=== PATIENT | male | born 1990 | race Caucasian/White ===

== ENCOUNTER 2023-07-04 19:17 | Inpatient (IN) ==
[2023-07-04 20:52] LABS: Adenovirus PCR Not Detected (NotDetected); Bordetella parapertussis PCR Not Detected (NotDetected); Bordetella pertussis PCR Not Detected (NotDetected); Chlamydia pneumoniae PCR Not Detected (NotDetected); Coronavirus 229E PCR Not Detected (NotDetected); Coronavirus CoV-2 (COVID19)PCR Not Detected (NotDetected); Coronavirus HKU1 PCR Not Detected (NotDetected); Coronavirus NL63 PCR Not Detected (NotDetected); Coronavirus OC43PCR Not Detected (NotDetected); Human Metapneumovirus PCR Not Detected (NotDetected); Influenza A PCR Not Detected (NotDetected); Influenza B PCR Not Detected (NotDetected); Mycoplasma pneumoniae PCR Not Detected (NotDetected); Parainfluenza Virus 1 PCR Not Detected (NotDetected); Parainfluenza Virus 2 PCR Not Detected (NotDetected); Parainfluenza Virus 3 PCR Not Detected (NotDetected); Parainfluenza Virus 4 PCR Not Detected (NotDetected); Respiratory Syncytial VirusPCR Not Detected (NotDetected); Rhinovirus/Enterovirus PCR Not Detected (NotDetected)
[2023-07-04 20:55] LABS: Basophils # (auto) 0.09 K/uL (0.00-0.20); Basophils % (auto) 0.5 %; Eosinophils # (auto) 0.39 K/uL (0.00-0.50); Eosinophils % (auto) 2.4 %; Hematocrit (blood only) 42.3 % (42.0-52.0); Hemoglobin 15.1 g/dl (14.0-18.0); Immature Granulocytes % (auto) 0.6 %; Lymphocytes # (auto) 2.21 K/uL (1.20-3.40); Lymphocytes % (auto) 13.4 %; Mean Corpuscular Hemoglobin 29.9 pg (25.0-34.0); Mean Corpuscular Hgb Conc 35.7 g/dL (32.0-36.0); Mean Corpuscular Volume 83.8 fL (80.0-100.0); Mean Platelet Volume 10.9 fL (9.4-12.4); Monocytes % (auto) 7.9 %; Neutrophils % (auto) 75.2 %; Platelet Count 356 K/uL (130-400); RDW Coefficient of Variation 11.9 % (11.5-14.5); RDW Standard Deviation 35.1 fL (36.4-46.3); Red Blood Count 5.05 M/uL (4.70-6.10); White Blood Count 16.49 K/ul (4.8-10.8)
[2023-07-04 21:05] LABS: INR 1.1 (0.9-1.1); Partial Thromboplastin Time 28 Seconds (21-31); Prothrombin Time 11.9 Seconds (9.0-12.0)
[2023-07-04 21:11] LABS: Albumin Globulin Ratio 1.1 (0.9-2); Albumin Level 4.2 gm/dl (3.4-5.0); BUN Creatinine Ratio 8.2 (10-20); Bilirubin,Total 1.7 mg/dl (0.2-1.0); Calcium 9.4 mg/dl (8.6-10.3); Creatinine Clr Calc Pharmacy 151.3 ml/min; Est GFR (African American) 135.5 ml/min; Est GFR (Non-African American) 116.9 ml/min; Globulin 3.7 gm/dl (2.5-4.0); Potassium 3.9 mmol/L (3.5-5.1); Total Protein 7.9 gm/dl (6.0-8.3)
--- NOTE | 2023-07-04 22:19 | Emergency Department Note ---
History of Present Illness General Chief complaint: Shortness of Breath/Dyspnea Stated complaint: SOB, RIBS HURT, COUGHING UP, PULSE OX DOWN Time Seen by Provider: 07/04/23 22:03 History of Present Illness Maximum Pain Intensity: 6 This is a 32-year-old male presents to the emergency department for evaluation of difficulty breathing. Patient has had symptoms for about a month and has been using home nebulizers without relief of symptoms. He states that he has a childhood history of asthma, but nothing as an adult. He did travel to and from [place] by car about 6 weeks ago. He does not have any chest pain or chest tightness, but feels very short of breath with activity. No pain in his arms or legs. No fevers. Patient does vape. Home Medications Medication Instructions Recorded Confirmed Type albuterol sulfate 90 mcg/actuation 2 puff inhalation .Q4-6H PRN 07/04/23 07/04/23 History aerosol inhaler Shortness Of Breath Or Wheezing benztropine 1 mg tablet 1 mg PO DAILY 07/04/23 07/04/23 History buprenorphine 8 mg-naloxone 2 mg 1 tab sublingual BID 07/04/23 07/04/23 History sublingual tablet diphenhydramine HCl 25 mg tablet 50 mg PO HS 07/04/23 07/04/23 History (Banophen) haloperidol 5 mg tablet 5 mg PO HS 07/04/23 07/04/23 History mirtazapine 15 mg tablet 15 mg PO HS 07/04/23 07/04/23 History propranolol 20 mg tablet 20 mg PO BID 07/04/23 07/04/23 History Allergies Allergy/AdvReac Type Severity Reaction Status Date / Time Penicillins Allergy Severe throat Verified 07/04/23 22:55 swells Past Med/Surg History Medical History No chronic diseases present Surgical History No significant past surgical history Social History Smoking Status: Current every day smoker Tobacco Type: E-cigarettes / Vaping and Smokeless Tobacco (Dip or Chew) Second Hand Exposure: No; Do You Dip or Chew Tobacco: Yes; Tobacco Cessation Education Requested by Patient: No Hx Alcohol Use: No Hx Substance Use: Yes (suboxone) Last Used Substance: Unknown Preferred Language: [place]an Credit Authorizer Required: No Beliefs That Will Affect Care: None Current Living Situation: Significant Other Other Information That Helps Us Care for You: No Feels Safe at Home: Yes Safety Concerns: Feels Safe At This Time Assistive Devices: None Review of Systems A total of 10 systems reviewed and were otherwise negative Physical Exam Vital Signs Vital Signs - 24 hr 07/04/23 19:20 07/04/23 19:24 07/04/23 21:50 Temperature 36.6 C Temperature Source Temporal Artery Scan Pulse Rate 97 H Pulse Rate [Apical] 96 H Pulse Rate from SpO2 Sensor Pulse Rhythm Regular Pulse Rhythm [Apical] Regular Pulse Strength Normal Respiratory Rate 18 24 Respiratory Effort / Characteristics Non-Labored Spontaneous Non-Labored Spontaneous Respiratory Depth Normal Normal Respiratory Pattern Regular Regular Blood Pressure 142/88 H Blood Pressure [Right Arm] 161/127 H Blood Pressure Mean 106 Blood Pressure Mean [Right Arm] 138 Blood Pressure Position Sitting Blood Pressure Position [Right Arm] Lying Pulse Oximetry 90 91 Oxygen Delivery Method Room Air Room Air Nasal Cannula Oxygen Flow Rate 2 Sepsis Recent Fever Within 48 Hours No Sepsis New/Unexplained Change in Mental Status N/A Sepsis Action Taken by Nursing No Action Required Oxygen Flow Rate - Titration Pulse Oximetry Post Tiitration 07/04/23 21:51 07/04/23 22:27 07/04/23 22:30 Temperature Temperature Source Pulse Rate 99 H 94 H Pulse Rate [Apical] Pulse Rate from SpO2 Sensor 97 H Pulse Rhythm Pulse Rhythm [Apical] Pulse Strength Respiratory Rate 21 Respiratory Effort / Characteristics Respiratory Depth Respiratory Pattern Blood Pressure Blood Pressure [Right Arm] Blood Pressure Mean Blood Pressure Mean [Right Arm] Blood Pressure Position Blood Pressure Position [Right Arm] Pulse Oximetry 88 L 90 Oxygen Delivery Method Nasal Cannula Nasal Cannula Oxygen Flow Rate 0 2 Sepsis Recent Fever Within 48 Hours Sepsis New/Unexplained Change in Mental Status Sepsis Action Taken by Nursing Oxygen Flow Rate - Titration 2 Pulse Oximetry Post Tiitration 91 07/04/23 23:00 07/04/23 23:35 07/05/23 00:31 Temperature Temperature Source Pulse Rate 96 H 94 H 90 Pulse Rate [Apical] Pulse Rate from SpO2 Sensor 97 H 94 H 92 H Pulse Rhythm Pulse Rhythm [Apical] Pulse Strength Respiratory Rate 22 19 15 Respiratory Effort / Characteristics Respiratory Depth Respiratory Pattern Blood Pressure 139/88 130/100 Blood Pressure [Right Arm] Blood Pressure Mean 105 110 Blood Pressure Mean [Right Arm] Blood Pressure Position Blood Pressure Position [Right Arm] Pulse Oximetry 92 92 91 Oxygen Delivery Method Nasal Cannula Nasal Cannula Nasal Cannula Oxygen Flow Rate 2 2 2 Sepsis Recent Fever Within 48 Hours Sepsis New/Unexplained Change in Mental Status Sepsis Action Taken by Nursing Oxygen Flow Rate - Titration Pulse Oximetry Post Tiitration VITALS: Vitals are noted on the nurse's note and reviewed by myself. Vital signs with tachycardia and hypoxia. GENERAL: Well-developed, well-nourished, white male, who is in no acute distress and resting comfortably. Patient is cooperative with the examination. HEAD: Normocephalic atraumatic. EARS: External ear normal. External auditory canals clear, tympanic membranes pearly trujillo without erythema or effusion bilaterally. EYES: Pupils equal round and reactive to light and accommodation. Conjunctivae without injection, sclerae without icterus. Extraocular movements intact. NOSE: Patent, turbinates without inflammation or discharge. MOUTH: Mucous membranes moist. Tonsils are not enlarged. Pharynx without erythema, blood, or exudate. Uvula midline. Airway patent. NECK: Supple without nuchal rigidity. No lymphadenopathy. No thyromegaly. Cervical spine is nontender. HEART: Regular rate and rhythm without murmurs gallops or rubs. LUNGS: Clear to auscultation bilaterally without wheezes, rales or rhonchi. No retractions or accessory muscle use. ABDOMEN: Positive normal bowel sounds x 4. Soft, nontender, without masses or organomegaly. No guarding or rebound tenderness. MUSCULOSKELETAL: No muscle atrophy, erythema, or edema noted. Full range of motion in all extremities. Course Administered Medications Discontinued Medications Benztropine Mesylate (Benztropine Mesylate 1 Mg Tab) 1 mg PO NOW STA Stop: 07/05/23 01:04 Last Admin: 07/05/23 01:33 Dose: 1 mg Documented By: SHREE Buprenorphine/Naloxone (Buprenorphine/Naloxone 8/2 Mg Tab) 1 tab SL NOW STA Stop: 07/05/23 01:04 Last Admin: 07/05/23 01:34 Dose: 1 tab Documented By: SHREE Diphenhydramine HCl (Diphenhydramine Capsule 25 Mg Cap) 50 mg PO NOW ONE Stop: 07/05/23 01:04 Last Admin: 07/05/23 01:34 Dose: 50 mg Documented By: SHREE Haloperidol (Haloperidol 5 Mg Tab) 5 mg PO NOW STA Stop: 07/05/23 01:04 Last Admin: 07/05/23 01:33 Dose: 5 mg Documented By: SHREE Tuberculin PPD 5 tu/ Syringe 0.1 mls @ 0.033 mls/min ID ONE ONE Stop: 07/05/23 03:03 Last Admin: 07/05/23 03:22 Dose: 0.033 mls/min Documented By: LIZET Ioversol (Optiray 320 125ml) 120 ml IV ONCE ONE Stop: 07/04/23 23:14 Last Admin: 07/04/23 23:13 Dose: 120 ml Documented By: ALBIN Mirtazapine (Mirtazapine Tab 15 Mg Tab) 15 mg PO NOW ONE Stop: 07/05/23 01:04 Last Admin: 07/05/23 01:33 Dose: 15 mg Documented By: SHREE Miscellaneous (Ppd Check) 1 each N/A Q48H ONE Stop: 07/05/23 03:01 Last Admin: 07/05/23 03:27 Dose: Not Given Documented By: LIZET Propranolol HCl (Propranolol Hcl 20 Mg Tab) 20 mg PO NOW STA Stop: 07/05/23 01:04 Last Admin: 07/05/23 01:33 Dose: 20 mg Documented By: SHREE Medical Decision Making Differential Diagnosis Differential diagnosis includes, but is not limited to: Myocardial infarction, dysrhythmia, pericarditis, pneumothorax, aortic aneurysm/dissection, DVT/PE, anxiety, GERD, PUD, electrolyte imbalance, thyroid disorder, pneumonia, bronchitis, pancreatitis, and others Laboratory Data 07/04/23 20:29 07/04/23 20:29 Lab Results 07/04/23 07/04/23 07/04/23 Range/Units 19:32 20:29 Unknown WBC 16.49 H (4.8-10.8) K/ul RBC 5.05 (4.70-6.10) M/uL Hgb 15.1 (14.0-18.0) g/dl Hct 42.3 (42.0-52.0) % MCV 83.8 (80.0-100.0) fL MCH 29.9 (25.0-34.0) pg MCHC 35.7 (32.0-36.0) g/dL RDW Std Deviation 35.1 L (36.4-46.3) fL RDW Coeff of Shaquille 11.9 (11.5-14.5) % Plt Count 356 (130-400) K/uL MPV 10.9 (9.4-12.4) fL Immature Gran % (Auto) 0.6 % Neut % (Auto) 75.2 % Lymph % (Auto) 13.4 % Schleicher % (Auto) 7.9 % Eos % (Auto) 2.4 % Baso % (Auto) 0.5 % Neut # (Auto) 12.40 H (1.40-6.50) K/uL Lymph # (Auto) 2.21 (1.20-3.40) K/uL Schleicher # (Auto) 1.30 H (0.11-0.59) K/uL Eos # (Auto) 0.39 (0.00-0.50) K/uL Baso # (Auto) 0.09 (0.00-0.20) K/uL Immature Gran # (Auto) 0.10 (0.01-0.20) K/uL PT 11.9 (9.0-12.0) Seconds INR 1.1 (0.9-1.1) APTT 28 (21-31) Seconds PTT Ratio 1.0 VBG pH 7.41 (7.36-7.41) VBG pCO2 26 L (38-50) mmHg VBG pO2 44 mmHg VBG HCO3 17 mmol/L VBG O2 Saturation 75.1 % VBG Base Excess -6.5 mEq/L Sodium 134 L (136-145) mmol/L Potassium 3.9 (3.5-5.1) mmol/L Chloride 98 (98-107) mmol/L Carbon Dioxide 28 (21-32) mmol/L Anion Gap 8 (3-11) BUN 7 (6-23) mg/dl Creatinine 0.85 (0.6-1.4) mg/dl Est Cr Clr Drug Dosing 151.3 ml/min Est GFR ( Amer) 135.5 ml/min Est GFR (Non-Af Amer) 116.9 ml/min BUN/Creatinine Ratio 8.2 L (10-20) Glucose 109 H (70-99(Fasting)) mg/dl Calcium 9.4 (8.6-10.3) mg/dl Phosphorus 2.4 L (2.5-4.9) mg/dl Total Bilirubin 1.7 H (0.2-1.0) mg/dl AST 49 H (13-39) U/L ALT 49 (7-52) U/L Alkaline Phosphatase 141 H (34-104) U/L Lactate Dehydrogenase 244 (86-244) U/L Troponin I High Sens 5.0 (0-20) pg/ml Total Protein 7.9 (6.0-8.3) gm/dl Albumin 4.2 (3.4-5.0) gm/dl Globulin 3.7 (2.5-4.0) gm/dl Albumin/Globulin Ratio 1.1 (0.9-2) Adenovirus (PCR) Not Detected (NotDetected) B. pertussis DNA (PCR) Not Detected (NotDetected) B.parapertussis DNA PCR Not Detected (NotDetected) C. pneumoniae DNA (PCR) Not Detected (NotDetected) Coronavirus OC43 (PCR) Not Detected (NotDetected) Coronavirus HKU1 (PCR) Not Detected (NotDetected) Coronavirus 229E (PCR) Not Detected (NotDetected) SARS-CoV-2 (PCR) Not Detected (NotDetected) Coronavirus NL63 (PCR) Not Detected (NotDetected) Human Metapneumovir PCR Not Detected (NotDetected) Influenza Type A (PCR) Not Detected (NotDetected) Influenza Type B (PCR) Not Detected (NotDetected) M. pneumoniae (PCR) Not Detected (NotDetected) Parainfluenza 1 (PCR) Not Detected (NotDetected) Parainfluenza 2 (PCR) Not Detected (NotDetected) Parainfluenza 3 (PCR) Not Detected (NotDetected) Parainfluenza 4 (PCR) Not Detected (NotDetected) RSV (PCR) Not Detected (NotDetected) Entero/Rhino (PCR) Not Detected (NotDetected) Imaging Data Radiologist's Impression: Chest CTA 07/04/23 22:04 CR Exam(s): CTA CHEST IV Amt: 120 cc otp i320 EXAM: CT Angiography Chest With Intravenous Contrast CLINICAL HISTORY: Reason for exam: SOB. TECHNIQUE: Axial computed tomographic angiography images of the chest with intravenous contrast. CTDI is 26.04 mGy and DLP is 899.64 mGy-cm. Automated exposure control was utilized for the study. A dose lowering technique was utilized adhering to the principles of ALARA. MIP reconstructed images were created and reviewed. COMPARISON: None. FINDINGS: Pulmonary arteries: Unremarkable. No pulmonary embolism. Aorta: No acute findings. No thoracic aortic aneurysm. Lungs: Diffuse asymmetric multilobar infiltrates with tree-in-bud pattern concerning for bronchiolar infectious process including viral etiology, nonspecific bronchiolitis, fungal infection or TB/atypical TB. Minimal bilateral lower lobe bronchiectasis. Pleural space: Unremarkable. No pleural effusion or pneumothorax. Heart: Unremarkable. No cardiomegaly. No significant pericardial effusion. No evidence of RV dysfunction. Bones/joints: No acute fracture. No dislocation. Soft tissues: Unremarkable. Lymph nodes: Unremarkable. No enlarged lymph nodes. Other findings: Visualized upper abdominal structures are unremarkable. IMPRESSION: 1. No pulmonary embolus or aortic dissection. 2. Diffuse micronodular infiltrates as described above with wide differential diagnosis including bronchiolitis of viral etiology, inflammatory, fungal infection or TB/atypical TB. Clinical correlation recommended. 3. No pleural effusion or pneumothorax. Communications: Call Doctor Other Electronically signed by: Angelika Haque MD 07/05/23 00:11 AM MDM Narrative Physical exam and history were performed. Nursing notes, EMR, and Medication List were personally reviewed. No social concerns were identified as barriers to patients care. Patient was seen while I was wearing an N95 mask at all times. Patient appears to have difficulty breathing bringing him to the ER. On arrival the patient is 86% on room air when walking to his room and 88% on room air at rest. Patient was placed on nasal cannula oxygen. He does not appear in significant distress with speaking, and lung sounds seem clear throughout. His vitals are concerning though. IV access was established and labs were obtained. Bio fire performed. Chest x-ray and CT scan performed. Patient's blood work is as above and was reviewed. He does have an elevated white count of 16,000. He does not have significant anemia or gross electrolyte imbalance. Lipase and transaminases are not diagnostic. Troponin is negative. Chest x-ray was reviewed by myself without obvious etiology of his symptoms. Bio fire is negative. CT scan of the chest was performed and reviewed by myself and radiology. This does seem to show diffuse micro infiltrates of unknown etiology. Overall the patient does not appear well for discharge. Escalation of care is necessary for the patient. He has hypoxia that improved with nasal oxygen, and a very concerning CT scan of the chest. There is a very wide differential to his symptoms. The case was discussed with the on-call hospitalist team who agreed to evaluate him here in the ER. Please see their dictation for further patient course, plan, and disposition. The chart was completed utilizing [employer] Voice Recognition Software. Grammatical errors, random word insertions, pronoun errors, and incomplete sentences are an occasional consequence of this system due to software limitations, ambient noise, and hardware issues. Any formal questions or concerns about the content, text, or information contained within the body of this dictation should be directly addressed to the provider for clarification. . Impression & Plan Acute dyspnea, Shortness of breath, Abnormal chest CT Discharge Plan Visit Data Chief Complaint: Shortness of Breath/Dyspnea Stated Complaint: SOB, RIBS HURT, COUGHING UP, PULSE OX DOWN ED Provider: James Rizo ED Midlevel Provider: Girish Fuentes Discharge Problem: Acute dyspnea, Shortness of breath, Abnormal chest CT Patient Disposition: Admitted As Inpatient Discharge Instructions Interventions: ED Discharge Assessment Last Done: 07/05/23 02:04
[2023-07-04] MEDS: OPTIRAY 320 125ml IV ONE (23:13)
--- NOTE | 2023-07-05 00:12 | CT Scan Report ---
Exam(s): CTA CHEST IV Amt: 120 cc otp i320 EXAM: CT Angiography Chest With Intravenous Contrast CLINICAL HISTORY: Reason for exam: SOB. TECHNIQUE: Axial computed tomographic angiography images of the chest with intravenous contrast. CTDI is 26.04 mGy and DLP is 899.64 mGy-cm. Automated exposure control was utilized for the study. A dose lowering technique was utilized adhering to the principles of ALARA. MIP reconstructed images were created and reviewed. COMPARISON: None. FINDINGS: Pulmonary arteries: Unremarkable. No pulmonary embolism. Aorta: No acute findings. No thoracic aortic aneurysm. Lungs: Diffuse asymmetric multilobar infiltrates with tree-in-bud pattern concerning for bronchiolar infectious process including viral etiology, nonspecific bronchiolitis, fungal infection or TB/atypical TB. Minimal bilateral lower lobe bronchiectasis. Pleural space: Unremarkable. No pleural effusion or pneumothorax. Heart: Unremarkable. No cardiomegaly. No significant pericardial effusion. No evidence of RV dysfunction. Bones/joints: No acute fracture. No dislocation. Soft tissues: Unremarkable. Lymph nodes: Unremarkable. No enlarged lymph nodes. Other findings: Visualized upper abdominal structures are unremarkable. IMPRESSION: 1. No pulmonary embolus or aortic dissection. 2. Diffuse micronodular infiltrates as described above with wide differential diagnosis including bronchiolitis of viral etiology, inflammatory, fungal infection or TB/atypical TB. Clinical correlation recommended. 3. No pleural effusion or pneumothorax. Communications: Call Doctor Other Electronically signed by: Angelika Haque MD 07/05/23 00:11 AM
[2023-07-05 00:21] LABS: Base Excess VBG -6.5 mEq/L; HCO3 VBG 17 mmol/L; Oxygen Saturation VBG 75.1 %; PCO2 VBG 26 mmHg (38-50); PO2 VBG 44 mmHg; pH VBG 7.41 (7.36-7.41)
--- NOTE | 2023-07-05 01:23 | History & Physical Report ---
Date of Service July 05, 2023 Assessment & Plan (1) Acute hypoxic respiratory failure: Plan: 32yo male with history of paranoid schizophrenia and Bipolar disorder presenting with two weeks of dyspnea, worse with exertion. Pleuritic chest pain and productive cough. CT of the chest as above. Broad differential. Patient with leukocytosis, negative procalcitonin, negative biofire panel -Admit to medical -Maintain isolation precautions - Airborne/Contact -Check HIV -Check LDH -Check BNP -Would consider repeat viral testing in 24-48 hours -Check Sputum culture -Check PPD -Albuterol PRN -Tylenol PRN -Oxygen as needed (2) Abnormal chest CT: Plan: Broad differential - viral vs fungal, less likely TB -Maintain isolation precautions -Studies as above -Consider Pulmonary consultation (3) History of paranoid schizophrenia: Plan: Chronic. Stable -Continue home medications History of Present Illness Chief Complaint: shortness of breath Primary Care Provider: Zeenat Gonzalez PA-C Gavin Walsh is a 32yo male with history of paranoid schizophrenia, prior opiate abuse on Suboxone therapy presenting with shortness of breath. Patient reports two weeks of stable, persistent shortness of breath. He feels short of breath at rest, worsened with exertion. His reports that patient was doubled over gasping for air after taking out the trash. He has been taking Albuterol nebulizer treatments with some short term relief. Patient reports cough productive for green phlegm. He has some chest/rib discomfort when he coughs and pleuritic pain as well. Denies headache, congestion, sore throat, fevers, chills or sweats. Denies chest pain, palpitations, abdominal pain, nausea, vomiting, diarrhea or constipation. Patient with remote history of IVDU 8-9 years ago. He is currently on Suboxone therapy 8mg SL BID. He used methamphetamines in the past as well - last used 5 years ago. Has never been tested for HIV. He does vape although infrequently, smokes marijuana/medical grade from the dispensary Incarcerated for a brief time - in December 2018 for 14 days. No history of homelessness or close contacts with Tuberculosis. He reports having a negative PPD test in 2019 Recently drove to [place] to visit his mother. No exposure to birds, bats, mold, caving, etc. Allergies Allergy/AdvReac Type Severity Reaction Status Date / Time Penicillins Allergy Severe throat Verified 07/04/23 22:55 [facility] [address] Home Medications Medication Instructions Recorded Confirmed Type albuterol sulfate 90 mcg/actuation 2 puff inhalation .Q4-6H PRN 07/04/23 07/04/23 History aerosol inhaler Shortness Of Breath Or Wheezing benztropine 1 mg tablet 1 mg PO DAILY 07/04/23 07/04/23 History buprenorphine 8 mg-naloxone 2 mg 1 tab sublingual BID 07/04/23 07/04/23 History sublingual tablet diphenhydramine HCl 25 mg tablet 50 mg PO HS 07/04/23 07/04/23 History (Banophen) haloperidol 5 mg tablet 5 mg PO HS 07/04/23 07/04/23 History mirtazapine 15 mg tablet 15 mg PO HS 07/04/23 07/04/23 History propranolol 20 mg tablet 20 mg PO BID 07/04/23 07/04/23 History Past Med/Surg History Medical History (Updated 07/05/23 @ 05:08 by Rose Cuellar DO) Acute hypoxic respiratory failure History of drug use On Suboxone History of bipolar disorder History of paranoid schizophrenia Surgical History (Updated 07/05/23 @ 05:03 by Rose Cuellar DO) No significant past surgical history Family History (Updated 07/05/23 @ 05:00 by Rose Cuellar DO) Other Cancer Social History Smoking Status: Current every day smoker Tobacco Type: E-cigarettes / Vaping and Smokeless Tobacco (Dip or Chew) Second Hand Exposure: No; Do You Dip or Chew Tobacco: Yes; Tobacco Cessation Education Requested by Patient: No Hx Alcohol Use: No Hx Substance Use: Yes (suboxone) Last Used Substance: Unknown Preferred Language: Stateless [employer] Required: No Beliefs That Will Affect Care: None Current Living Situation: Significant Other Other Information That Helps Us Care for You: No Feels Safe at Home: Yes Safety Concerns: Feels Safe At This Time Assistive Devices: None Review of Systems Review of Systems: All systems reviewed & are unremarkable except as noted in HPI & below Physical Exam Physical Exam: General: patient resting comfortably, NAD, non-toxic in appearance, AA&O x 4 Skin: warm, dry, intact, no rashes or lesions HEENT: NC/AT, PERRL, EOMI, anicteric sclera, conjunctiva without injection, external ear normal to inspection and nontender, nares patent, moist mucus membranes, dentition intact, no oropharyngeal lesions, neck supple, trachea midline, no LAD, no thyromegaly, no JVD Heart: +S1/S2, regular, no m/r/g Lungs: equal air entry bilaterally, diffuse wheezing throughout, coarse breath sounds in bilateral bases Abd: +BS, soft, NT/ND, no masses/organomegaly/ascites Ext: warm, 2+ pulses in UE/LE bilaterally, no clubbing/cyanosis or edema Neuro: nonfocal, patient AA&O x 4, speech intact, no facial droop, moving all extremities on command with equal strength 5/5 Results & Data Results & Data Vital Signs (Past 12 Hours) Vital Signs Temp Pulse Pulse Resp BP BP Pulse Ox 07/04/23 23:35 94 H 19 92 07/04/23 23:00 96 H 22 139/88 92 07/04/23 22:30 94 H 21 90 07/04/23 22:27 99 H 07/04/23 21:51 88 L 07/04/23 21:50 96 H 24 161/127 H 91 07/04/23 19:24 07/04/23 19:20 36.6 C 97 H 18 142/88 H 90 O2 Del Method O2 Flow Rate 07/04/23 23:35 Nasal Cannula 2 07/04/23 23:00 Nasal Cannula 2 07/04/23 22:30 Nasal Cannula 2 07/04/23 22:27 07/04/23 21:51 Nasal Cannula 0 07/04/23 21:50 Nasal Cannula 2 07/04/23 19:24 Room Air 07/04/23 19:20 Room Air Laboratory Results Laboratory Results WBC 16.49 K/ul (4.8-10.8) H 07/04/23 20:29 RBC 5.05 M/uL (4.70-6.10) 07/04/23 20:29 Hgb 15.1 g/dl (14.0-18.0) 07/04/23 20:29 Hct 42.3 % (42.0-52.0) 07/04/23 20:29 MCV 83.8 fL (80.0-100.0) 07/04/23: MCH 29.9 pg (25.0-34.0) 07/04/23: MCHC 35.7 g/dL (32.0-36.0) 07/04/23: RDW Std Deviation 35.1 fL (36.4-46.3) L 07/04/23: RDW Coeff of Shaquille 11.9 % (11.5-14.5) 07/04/23: Plt Count 356 K/uL (130-400) 07/04/23: MPV 10.9 fL (9.4-12.4) 07/04/23: Immature Gran % (Auto) 0.6 % 07/04/23: Neut % (Auto) 75.2 % 07/04/23: Lymph % (Auto) 13.4 % 07/04/23: [place] % (Auto) 7.9 % 07/04/23: Eos % (Auto) 2.4 % 07/04/23: Baso % (Auto) 0.5 % 07/04/23: Neut # (Auto) 12.40 K/uL (1.40-6.50) H 07/04/23: Lymph # (Auto) 2.21 K/uL (1.20-3.40) 07/04/23: [place] # (Auto) 1.30 K/uL (0.11-0.59) H 07/04/23: Eos # (Auto) 0.39 K/uL (0.00-0.50) 07/04/23: Baso # (Auto) 0.09 K/uL (0.00-0.20) 07/04/23: Immature Gran # (Auto) 0.10 K/uL (0.01-0.20) 07/04/23: PT 11.9 Seconds (9.0-12.0) 07/04/23: INR 1.1 (0.9-1.1) 07/04/23: APTT 28 Seconds (21-31) 07/04/23: PTT Ratio 1.0 05/06/24 20:29 VBG pH 7.41 (7.36-7.41) 07/04/23 Unknown VBG pCO2 26 mmHg (38-50) L 07/04/23 Unknown VBG pO2 44 mmHg 07/04/23 Unknown VBG HCO3 17 mmol/L 07/04/23 Unknown VBG O2 Saturation 75.1 % 07/04/23 Unknown VBG Base Excess -6.5 mEq/L 07/04/23 Unknown Sodium 134 mmol/L (136-145) L 07/04/23 20:29 Potassium 3.9 mmol/L (3.5-5.1) 07/04/23 20:29 Chloride 98 mmol/L (98-107) 07/04/23 20:29 Carbon Dioxide 28 mmol/L (21-32) 07/04/23 20: Anion Gap 8 (3-11) 07/04/23 20:29 BUN 7 mg/dl (6-23) 07/04/23 20: Creatinine 0.85 mg/dl (0.6-1.4) 07/04/23 20: Est Cr Clr Drug Dosing 151.3 ml/min 07/04/23 20:29 Est GFR ( Amer) 135.5 ml/min 07/04/23 20:29 Est GFR (Non-Af Amer) 116.9 ml/min 07/04/23 20:29 BUN/Creatinine Ratio 8.2 (10-20) L 07/04/23 20:29 Glucose 109 mg/dl (70-99(Fasting)) H 07/04/23 20:29 Calcium 9.4 mg/dl (8.6-10.3) 07/04/23 20:29 Phosphorus 2.4 mg/dl (2.5-4.9) L 07/04/23 20:29 Total Bilirubin 1.7 mg/dl (0.2-1.0) H 07/04/23 20:29 AST 49 U/L (13-39) H 07/04/23 20:29 ALT 49 U/L (7-52) 07/04/23 20:29 Alkaline Phosphatase 141 U/L (34-104) H 07/04/23 20:29 Lactate Dehydrogenase 244 U/L (86-244) 07/04/23 20:29 Troponin I High Sens 5.0 pg/ml (0-20) 07/04/23 20:29 Total Protein 7.9 gm/dl (6.0-8.3) 07/04/23 20:29 Albumin 4.2 gm/dl (3.4-5.0) 07/04/23 20: Globulin 3.7 gm/dl (2.5-4.0) 07/04/23 20:29 Albumin/Globulin Ratio 1.1 (0.9-2) 07/04/23 20:29 Procalcitonin 0.05 ng/ml (0-0.5) 07/05/23 Unknown Adenovirus (PCR) Not Detected (NotDetected) 07/04/23 19:32 B. pertussis DNA (PCR) Not Detected (NotDetected) 07/04/23 19:32 B.parapertussis DNA PCR Not Detected (NotDetected) 07/04/23 19:32 C. pneumoniae DNA (PCR) Not Detected (NotDetected) 07/04/23 19:32 Coronavirus OC43 (PCR) Not Detected (NotDetected) 07/04/23 19:32 Coronavirus HKU1 (PCR) Not Detected (NotDetected) 07/04/23 19:32 Coronavirus 229E (PCR) Not Detected (NotDetected) 07/04/23 19:32 SARS-CoV-2 (PCR) Not Detected (NotDetected) 07/04/23 19:32 Coronavirus NL63 (PCR) Not Detected (NotDetected) 07/04/23 19:32 Human Metapneumovir PCR Not Detected (NotDetected) 07/04/23 19:32 Influenza Type A (PCR) Not Detected (NotDetected) 07/04/23 19:32 Influenza Type B (PCR) Not Detected (NotDetected) 07/04/23 19:32 M. pneumoniae (PCR) Not Detected (NotDetected) 07/04/23 19:32 Parainfluenza 1 (PCR) Not Detected (NotDetected) 07/04/23 19:32 Parainfluenza 2 (PCR) Not Detected (NotDetected) 07/04/23 19:32 Parainfluenza 3 (PCR) Not Detected (NotDetected) 07/04/23 19:32 Parainfluenza 4 (PCR) Not Detected (NotDetected) 07/04/23 19:32 RSV (PCR) Not Detected (NotDetected) 07/04/23 19:32 Entero/Rhino (PCR) Not Detected (NotDetected) 07/04/23 19:32 Impressions Chest CTA 07/04/23 22:04 CR Exam(s): CTA CHEST IV Amt: 120 cc otp i320 EXAM: CT Angiography Chest With Intravenous Contrast CLINICAL HISTORY: Reason for exam: SOB. TECHNIQUE: Axial computed tomographic angiography images of the chest with intravenous contrast. CTDI is 26.04 mGy and DLP is 899.64 mGy-cm. Automated exposure control was utilized for the study. A dose lowering technique was utilized adhering to the principles of ALARA. MIP reconstructed images were created and reviewed. COMPARISON: None. FINDINGS: Pulmonary arteries: Unremarkable. No pulmonary embolism. Aorta: No acute findings. No thoracic aortic aneurysm. Lungs: Diffuse asymmetric multilobar infiltrates with tree-in-bud pattern concerning for bronchiolar infectious process including viral etiology, nonspecific bronchiolitis, fungal infection or TB/atypical TB. Minimal bilateral lower lobe bronchiectasis. Pleural space: Unremarkable. No pleural effusion or pneumothorax. Heart: Unremarkable. No cardiomegaly. No significant pericardial effusion. No evidence of RV dysfunction. Bones/joints: No acute fracture. No dislocation. Soft tissues: Unremarkable. Lymph nodes: Unremarkable. No enlarged lymph nodes. Other findings: Visualized upper abdominal structures are unremarkable. IMPRESSION: 1. No pulmonary embolus or aortic dissection. 2. Diffuse micronodular infiltrates as described above with wide differential diagnosis including bronchiolitis of viral etiology, inflammatory, fungal infection or TB/atypical TB. Clinical correlation recommended. 3. No pleural effusion or pneumothorax. Communications: Call Doctor Other Electronically signed by: Angelika Haque MD 07/05/23 00:11 AM PG Care Time/CCT Total # of Minutes Spent Total Time Spent with Patient: Total time spent is greater than 50% in coordination of care (as documented) at patient's floor/unit and/or counseling patient: Coding Level of Care Code 15882 INT INP/OBS CARE 2/55MIN Diagnoses Acute hypoxic respiratory failure J96.[address] R93.89 History of paranoid schizophrenia Z86.59
[2023-07-05] MEDS: PROPRANOLOL HCL 20 MG TAB PO STA (01:33)
[2023-07-05] MEDS: BENZTROPINE MESYLATE 1 MG TAB PO STA (01:33)
[2023-07-05] MEDS: haloperidoL 5 MG TAB PO STA (01:33)
[2023-07-05] MEDS: MIRTAZAPINE TAB 15 MG TAB PO ONE (01:33)
[2023-07-05] MEDS: BUPRENORPHINE/NALOXONE 8/2 MG TAB SL STA (01:34)
[2023-07-05] MEDS: diphenhydrAMINE Capsule 25 MG CAP PO ONE (01:34)
[2023-07-05] MEDS ORDERED: ONDANSETRON INJ 2 MG/ML 2 ML VIAL IV PRN (02:19)
[2023-07-05] MEDS ORDERED: ACETAMINOPHEN 325 MG TAB PO PRN (02:19)
[2023-07-05] MEDS ORDERED: ALBUTEROL HFA 8 GM INHALER INH PRN (02:19)
[2023-07-05 02:43] LABS: Phosphorus 2.4 mg/dl (2.5-4.9)
[2023-07-05] MEDS: TUBERCULIN SKIN TEST 5 TU in SYRINGE 0 ML ID ONE (03:22)
[2023-07-05] MEDS: PPD CHECK ONE (03:27)
--- NOTE | 2023-07-05 06:58 | XRay Report ---
XR chest 1V not portable HISTORY: Chest pain, nonspecific COMPARISON: None. FINDINGS: Mild reticulonodular interstitial thickening at the lung bases. The heart is normal in size . No pleural effusions. No pneumothorax. No acute fractures. IMPRESSION: Mild reticulonodular interstitial thickening at the lung bases. This favors an atypical/viral pneumon itis. ACT 112: Negative or not required by law. Electronically signed by: Riaz Berry M.D. 07/05/2023 6:57 AM
[2023-07-05] MEDS: PROPRANOLOL HCL 20 MG TAB PO SCH (08:19)
--- NOTE | 2023-07-05 08:19 | Hospitalist Progress Note ---
Date of Service July 05, 2023 Assessment & Plan (1) Acute hypoxic respiratory failure: (2) Abnormal chest CT: (3) History of paranoid schizophrenia: Plan 1) Acute hypoxic respiratory failure: Plan: 32yo male with history of paranoid schizophrenia, bipolar disorder, and childhood asthma presenting with two weeks of dyspnea, worse with exertion. Also notes pleuritic chest pain and productive cough with green sputum, no hemoptysis. Hx of vaping (multiple years), marijuana use (19 years), IVDU, prior opiate use. -CT of the chest as above showing diffuse micronodular infiltrates. -Sputum gram stain shows: many gram positive cocci. -Elevated WBC (16.49), neutrophils (12.20), AST (49), ALP (141), total bili (1.7), and negative procalcitonin, negative biofire panel, normal BNP (17). -Pulmonology team recommends 7-day course of azithromycin for suspected bronchitis. -Blood and sputum culture pending -HIV test pending -Maintain isolation precautions - Airborne/Contact -Albuterol PRN -Tylenol PRN -Oxygen as needed (2) Abnormal chest CT: Plan: Broad differential - viral vs fungal, less likely TB -Maintain isolation precautions -Studies as above -Consider Pulmonary consultation (3) History of paranoid schizophrenia: Plan: Chronic. Stable -Continue home medications Admission and Anticipated Discharge Date Admission Date: July 05, 2023 Ezequiel Alonso is a 32yo male with hx of childhood asthma, paranoid schizophrenia, and bipolar disorder with hx of vaping (multiple years), marijuana use (19 years), IVDU, prior opiate use who is presenting with 2 weeks of consistent dyspnea, worse with exertion. Notes pleuritic CP and productive cough with green sputum have improved with current tx. Feels like he is doing well with on oxygen (SpO2 90s, nasal canula 2L/min) and has no other concerns. Review of Systems Review of Systems: +Cough (decreased green sputum), +SOB wi th exertion when not on oxygen, +Mild pleuritic discomfort. Denies any recent weight changes. No fevers, chills, CP, palpitations, dizziness, syncope, seizures, numbness, tingling, N/V/D. Physical Exam Physical Exam: General: No acute distress. HEENT: NC/AT, PERRL, anicteric sclera, conjunctiva without injection. Heart: Lungs: Ext: Mild upper extremity edema and erythema distally. 2+ pulses in UE/LE bilaterally, no clubbing/cyanosis. Skin: Warm, dry, intact, no rashes or lesions. Neuro: Nonfocal, A&O x3, normal speech and cognition, no facial droop, moving all extremities. Results & Data Results & Data Vital Signs (Past 12 Hours) Vital Signs Temp Pulse Pulse Resp BP BP Pulse Ox 07/05/23 08:12 07/05/23 07:14 36.5 C 69 16 134/94 93 07/05/23 02:26 07/05/23 02:26 36.6 C 82 16 150/92 H 93 07/05/23 02:04 36.6 C 75 20 107/68 94 07/05/23 00:31 90 15 130/100 91 07/04/23 23:35 94 H 19 92 07/04/23 23:00 96 H 22 139/88 92 07/04/23 22:30 94 H 21 90 07/04/23 22:27 99 H 07/04/23 21:51 88 L 07/04/23 21:50 96 H 24 161/127 H 91 O2 Del Method O2 Flow Rate 07/05/23 08:12 Nasal Cannula 2 07/05/23 07:14 Nasal Cannula 2 07/05/23 02:26 Nasal Cannula 2 07/05/23 02:26 Room Air 07/05/23 02:04 Nasal Cannula 2 07/05/23 00:31 Nasal Cannula 2 07/04/23 23:35 Nasal Cannula 2 07/04/23 23:00 Nasal Cannula 2 07/04/23 22:30 Nasal Cannula 2 07/04/23 22:27 07/04/23 21:51 Nasal Cannula 0 07/04/23 21:50 Nasal Cannula 2 Laboratory Results 07/05/23 07/05/23 07/04/23 Range/Units Unknown 05:22 Unknown WBC (4.8-10.8) K/ul RBC (4.70-6.10) M/uL Hgb (14.0-18.0) g/dl Hct (42.0-52.0) % MCV (80.0-100.0) fL MCH (25.0-34.0) pg MCHC (32.0-36.0) g/dL RDW Std Deviation (36.4-46.3) fL RDW Coeff of Shaquille (11.5-14.5) % Plt Count (130-400) K/uL MPV (9.4-12.4) fL Immature Gran % (Auto) % Neut % (Auto) % Lymph % (Auto) % [place] % (Auto) % Eos % (Auto) % Baso % (Auto) % Neut # (Auto) (1.40-6.50) K/uL Lymph # (Auto) (1.20-3.40) K/uL [place] # (Auto) (0.11-0.59) K/uL Eos # (Auto) (0.00-0.50) K/uL Baso # (Auto) (0.00-0.20) K/uL Immature Gran # (Auto) (0.01-0.20) K/uL PT (9.0-12.0) Seconds INR (0.9-1.1) APTT (21-31) Seconds PTT Ratio VBG pH 7.41 (7.36-7.41) VBG pCO2 26 L (38-50) mmHg VBG pO2 44 mmHg VBG HCO3 17 mmol/L VBG O2 Saturation 75.1 % VBG Base Excess -6.5 mEq/L Sodium (136-145) mmol/L Potassium (3.5-5.1) mmol/L Chloride (98-107) mmol/L Carbon Dioxide (21-32) mmol/L Anion Gap (3-11) BUN (6-23) mg/dl Creatinine (0.6-1.4) mg/dl Est Cr Clr Drug Dosing ml/min Est GFR ( Amer) ml/min Est GFR (Non-Af Amer) ml/min BUN/Creatinine Ratio (10-20) Glucose (70-99(Fasting)) mg/dl Calcium (8.6-10.3) mg/dl Phosphorus (2.5-4.9) mg/dl Total Bilirubin (0.2-1.0) mg/dl AST (13-39) U/L ALT (7-52) U/L Alkaline Phosphatase (34-104) U/L Lactate Dehydrogenase (86-244) U/L Troponin I High Sens (0-20) pg/ml B-Natriuretic Peptide 17 (0-100) pg/ml Total Protein (6.0-8.3) gm/dl Albumin (3.4-5.0) gm/dl Globulin (2.5-4.0) gm/dl Albumin/Globulin Ratio (0.9-2) Procalcitonin 0.05 (0-0.5) ng/ml Adenovirus (PCR) (NotDetected) B. pertussis DNA (PCR) (NotDetected) B.parapertussis DNA PCR (NotDetected) C. pneumoniae DNA (PCR) (NotDetected) Coronavirus OC43 (PCR) (NotDetected) Coronavirus HKU1 (PCR) (NotDetected) Coronavirus 229E (PCR) (NotDetected) SARS-CoV-2 (PCR) (NotDetected) Coronavirus NL63 (PCR) (NotDetected) HIV (1&2) Ag & Ab Conf Pending Human Metapneumovir PCR (NotDetected) Influenza Type A (PCR) (NotDetected) Influenza Type B (PCR) (NotDetected) M. pneumoniae (PCR) (NotDetected) Parainfluenza 1 (PCR) (NotDetected) Parainfluenza 2 (PCR) (NotDetected) Parainfluenza 3 (PCR) (NotDetected) Parainfluenza 4 (PCR) (NotDetected) RSV (PCR) (NotDetected) Entero/Rhino (PCR) (NotDetected) 07/04/23 07/04/23 Range/Units 20:29 19:32 WBC 16.49 H (4.8-10.8) K/ul RBC 5.05 (4.70-6.10) M/uL Hgb 15.1 (14.0-18.0) g/dl Hct 42.3 (42.0-52.0) % MCV 83.8 (80.0-100.0) fL MCH 29.9 (25.0-34.0) pg MCHC 35.7 (32.0-36.0) g/dL RDW Std Deviation 35.1 L (36.4-46.3) fL RDW Coeff of [place] 11.9 (11.5-14.5) % Plt Count 356 (130-400) K/uL MPV 10.9 (9.4-12.4) fL Immature Gran % (Auto) 0.6 % Neut % (Auto) 75.2 % Lymph % (Auto) 13.4 % [place] % (Auto) 7.9 % Eos % (Auto) 2.4 % Baso % (Auto) 0.5 % Neut # (Auto) 12.40 H (1.40-6.50) K/uL Lymph # (Auto) 2.21 (1.20-3.40) K/uL [place] # (Auto) 1.30 H (0.11-0.59) K/uL Eos # (Auto) 0.39 (0.00-0.50) K/uL Baso # (Auto) 0.09 (0.00-0.20) K/uL Immature Gran # (Auto) 0.10 (0.01-0.20) K/uL PT 11.9 (9.0-12.0) Seconds INR 1.1 (0.9-1.1) APTT 28 (21-31) Seconds PTT Ratio 1.0 VBG pH (7.36-7.41) VBG pCO2 (38-50) mmHg VBG pO2 mmHg VBG HCO3 mmol/L VBG O2 Saturation % VBG Base Excess mEq/L Sodium 134 L (136-145) mmol/L Potassium 3.9 (3.5-5.1) mmol/L Chloride 98 (98-107) mmol/L Carbon Dioxide 28 (21-32) mmol/L Anion Gap 8 (3-11) BUN 7 (6-23) mg/dl Creatinine 0.85 (0.6-1.4) mg/dl Est Cr Clr Drug Dosing 151.3 ml/min Est GFR ( Amer) 135.5 ml/min Est GFR (Non-Af Amer) 116.9 ml/min BUN/Creatinine Ratio 8.2 L (10-20) Glucose 109 H (70-99(Fasting)) mg/dl Calcium 9.4 (8.6-10.3) mg/dl Phosphorus 2.4 L (2.5-4.9) mg/dl Total Bilirubin 1.7 H (0.2-1.0) mg/dl AST 49 H (13-39) U/L ALT 49 (7-52) U/L Alkaline Phosphatase 141 H (34-104) U/L Lactate Dehydrogenase 244 (86-244) U/L Troponin I High Sens 5.0 (0-20) pg/ml B-Natriuretic Peptide (0-100) pg/ml Total Protein 7.9 (6.0-8.3) gm/dl Albumin 4.2 (3.4-5.0) gm/dl Globulin 3.7 (2.5-4.0) gm/dl Albumin/Globulin Ratio 1.1 (0.9-2) Procalcitonin (0-0.5) ng/ml Adenovirus (PCR) Not Detected (NotDetected) B. pertussis DNA (PCR) Not Detected (NotDetected) B.parapertussis DNA PCR Not Detected (NotDetected) C. pneumoniae DNA (PCR) Not Detected (NotDetected) Coronavirus OC43 (PCR) Not Detected (NotDetected) Coronavirus HKU1 (PCR) Not Detected (NotDetected) Coronavirus 229E (PCR) Not Detected (NotDetected) SARS-CoV-2 (PCR) Not Detected (NotDetected) Coronavirus NL63 (PCR) Not Detected (NotDetected) HIV (1&2) Ag & Ab Conf Human Metapneumovir PCR Not Detected (NotDetected) Influenza Type A (PCR) Not Detected (NotDetected) Influenza Type B (PCR) Not Detected (NotDetected) M. pneumoniae (PCR) Not Detected (NotDetected) Parainfluenza 1 (PCR) Not Detected (NotDetected) Parainfluenza 2 (PCR) Not Detected (NotDetected) Parainfluenza 3 (PCR) Not Detected (NotDetected) Parainfluenza 4 (PCR) Not Detected (NotDetected) RSV (PCR) Not Detected (NotDetected) Entero/Rhino (PCR) Not Detected (NotDetected) Diagnostic Findings Chest X-Ray 07/04/23 19:24 XR chest 1V not portable HISTORY: Chest pain, nonspecific COMPARISON: None. FINDINGS: Mild reticulonodular interstitial thickening at the lung bases. The heart is normal in size. No pleural effusions. No pneumothorax. No acute fractures. IMPRESSION: Mild reticulonodular interstitial thickening at the lung bases. This favors an atypical/viral pneumonitis. ACT 112: Negative or not required by law. Electronically signed by: Riaz Berry M.D. 07/05/2023 6:57 AM Chest CTA 07/04/23 22:04 Exam(s): CTA CHEST IV Amt: 120 cc otp i320 EXAM: CT Angiography Chest With Intravenous Contrast CLINICAL HISTORY: Reason for exam: SOB. TECHNIQUE: Axial computed tomographic angiography images of the chest with intravenous contrast. CTDI is 26.04 mGy and DLP is 899.64 mGy-cm. Automated exposure control was utilized for the study. A dose lowering technique was utilized adhering to the principles of ALARA. MIP reconstructed images were created and reviewed. COMPARISON: None. FINDINGS: Pulmonary arteries: Unremarkable. No pulmonary embolism. Aorta: No acute findings. No thoracic aortic aneurysm. Lungs: Diffuse asymmetric multilobar infiltrates with tree-in-bud pattern concerning for bronchiolar infectious process including viral etiology, nonspecific bronchiolitis, fungal infection or TB/atypical TB. Minimal bilateral lower lobe bronchiectasis. Pleural space: Unremarkable. No pleural effusion or pneumothorax. Heart: Unremarkable. No cardiomegaly. No significant pericardial effusion. No evidence of RV dysfunction. Bones/joints: No acute fracture. No dislocation. Soft tissues: Unremarkable. Lymph nodes: Unremarkable. No enlarged lymph nodes. Other findings: Visualized upper abdominal structures are unremarkable. IMPRESSION: 1. No pulmonary embolus or aortic dissection. 2. Diffuse micronodular infiltrates as described above with wide differential diagnosis including bronchiolitis of viral etiology, inflammatory, fungal infection or TB/atypical TB. Clinical correlation recommended. 3. No pleural effusion or pneumothorax. Communications: Call Doctor Other Electronically signed by: Angelika Haque MD 07/05/23 00:11 AM
[2023-07-05] MEDS: BUPRENORPHINE/NALOXONE 8/2 MG TAB SL SCH (09:05)
--- NOTE | 2023-07-05 14:03 | Pulmonary Consultation ---
Date of Consultation July 05, 2023 Assessment & Plan (1) Abnormal chest CT: (2) Shortness of breath: (3) Bronchiolitis: Plan Impression: 32-year-old male with CT scan showing multiple micronodules suspicious for infectious/inflammatory bronchiolitis. The patient has a history of smoking marijuana which may cause this clinical picture. Viral bronchiolitis may also have a similar pattern. Recommendations: 1. Bronchiolitis: Patient is currently not undergoing any treatment. Would recommend treatment for bronchitis with azithromycin for 7 days. Recommend a follow-up noncontrast CT of the chest in 8 to 10 weeks to document resolution. No indication for bronchoscopy, respiratory isolation, or additional invasive procedures at this time. 2. The patient was advised that these findings may be consistent with prior/ongoing marijuana exposure. He was encouraged to avoid vaping or smoking marijuana. If he insists on using THC, a noninhalational delivery system should be entertained. 3. The patient does not appear to be hypoxemic. Recommend two-step evaluation. If he is not hypoxemic he can likely be dismissed from the hospital with antibiotics and outpatient follow-up with his primary care provider and a follow-up CT scan as noted above. Pulmonary will sign off at this point in time. Feel free to contact us with questions or concerns. History of Present Illness Attending Physician: Ru Negrete, DO History of Present Illness Asked by hospitalist to evaluate this patient with an abnormal CT scan and shortness of breath. History is obtained from discussion with the patient as well as his girlfriend at bedside and reviewed the electronic medical record. Patient is a 32-year-old male who actively smokes a few bowls of marijuana on a daily basis. He also vapes. He has had shortness of breath going on for several weeks with a cough productive of green phlegm. He is never had hemoptysis. He denies any fevers chills night sweats or other constitutional symptoms. No chest pain or palpitations. He is not had any nausea vomiting or unintentional weight loss. No pertinent travel history. He has no significant occupational exposures. He spends most of his day taking care of his children at home. Children have not been suffering from any recent viral upper respiratory infections symptoms. Due to the cough and shortness of breath the patient was seen in the emergency room. Allergies Allergy/AdvReac Type Severity Reaction Status Date / Time Penicillins Allergy Severe throat Verified 07/04/23 22:55 [facility] Home Medications Medication Instructions Recorded Confirmed Type albuterol sulfate 90 mcg/actuation 2 puff inhalation .Q4-6H PRN 07/04/23 07/04/23 History aerosol inhaler Shortness Of Breath Or Wheezing benztropine 1 mg tablet 1 mg PO DAILY 07/04/23 07/04/23 History buprenorphine 8 mg-naloxone 2 mg 1 tab sublingual BID 07/04/23 07/04/23 History sublingual tablet diphenhydramine HCl 25 mg tablet 50 mg PO HS 07/04/23 07/04/23 History (Banophen) haloperidol 5 mg tablet 5 mg PO HS 07/04/23 07/04/23 History mirtazapine 15 mg tablet 15 mg PO HS 07/04/23 07/04/23 History propranolol 20 mg tablet 20 mg PO BID 07/04/23 07/04/23 History Patient History Medical History (Updated 07/05/23 @ 13:59 by Ruben Hayes MD) Acute hypoxic respiratory failure History of drug use On Suboxone History of bipolar disorder History of paranoid schizophrenia Surgical History (Updated 07/05/23 @ 05:03 by Rose Cuellar DO) No significant past surgical history Family History (Updated 07/05/23 @ 05:00 by Rose Cuellar DO) Other Cancer Social History Smoking Status: Current every day smoker Tobacco Type: E-cigarettes / Vaping and Smokeless Tobacco (Dip or Chew) Second Hand Exposure: No; Do You Dip or Chew Tobacco: Yes; Tobacco Cessation Education Requested by Patient: No Hx Alcohol Use: No Hx Substance Use: Yes (suboxone) Last Used Substance: Unknown Preferred Language: A[place]i [employer] Required: No Beliefs That Will Affect Care: None Current Living Situation: Significant Other Other Information That Helps Us Care for You: No Feels Safe at Home: Yes Safety Concerns: Feels Safe At This Time Assistive Devices: None Review of Systems Review of Systems: All systems reviewed & are unremarkable except as noted in Subjective Physical Exam Constitutional: WD/WN, vitals as above Neck: trachea midline, no thyromegaly Respiratory: normal respiratory effort, lungs clear to auscultation Cardiovascular: RRR, no murmur, no edema Gastrointestinal (Abdomen): normal bowel sounds, soft, nontender, no hepatosplenomegaly Musculoskeletal: Extremities: extremities normal to inspection Skin: no rashes, warm and dry Neurologic: Nonfocal exam Lymphatic: no cervical lymphadenopathy Results & Data Results & Data Vital Signs (Past 12 Hours) Vital Signs Temp Pulse Pulse Resp BP BP Pulse Ox 07/05/23 08:12 07/05/23 07:14 36.5 C 69 16 134/94 93 07/05/23 02:26 07/05/23 02:26 36.6 C 82 16 150/92 H 93 07/05/23 02:04 36.6 C 75 20 107/68 94 O2 Del Method O2 Flow Rate 07/05/23 08:12 Nasal Cannula 2 07/05/23 07:14 Nasal Cannula 2 07/05/23 02:26 Nasal Cannula 2 07/05/23 02:26 Room Air 07/05/23 02:04 Nasal Cannula 2 Critical Care Results & Data Vital Signs (Past 12 Hours) Vital Signs Temp Pulse Pulse Resp BP BP Pulse Ox 07/05/23 08:12 07/05/23 07:14 36.5 C 69 16 134/94 93 07/05/23 02:26 07/05/23 02:26 36.6 C 82 16 150/92 H 93 07/05/23 02:04 36.6 C 75 20 107/68 94 O2 Del Method O2 Flow Rate 07/05/23 08:12 Nasal Cannula 2 07/05/23 07:14 Nasal Cannula 2 07/05/23 02:26 Nasal Cannula 2 07/05/23 02:26 Room Air 07/05/23 02:04 Nasal Cannula 2 Lab & Micro Results (Past 24 Hours) RBC 5.05 M/uL (4.70-6.10) 07/04/23 WBC 16.49 K/ul (4.8-10.8) H 07/04/23 Hgb 15.1 g/dl (14.0-18.0) 07/04/23 Hct 42.3 % (42.0-52.0) 07/04/23 MCV 83.8 fL (80.0-100.0) 07/04/23 MCH 29.9 pg (25.0-34.0) 07/04/23 MCHC 35.7 g/dL (32.0-36.0) 07/04/23 RDW Standard Deviation 35.1 fL (36.4-46.3) L 07/04/23 RDW Coefficient of Variation 11.9 % (11.5-14.5) 07/04/23 Plt Count 356 K/uL (130-400) 07/04/23 MPV 10.9 fL (9.4-12.4) 07/04/23 Neutrophils (%) (Auto) 75.2 % 07/04/23 Lymphocytes (%) (Auto) 13.4 % 07/04/23 Monocytes # (Auto) 1.30 K/uL (0.11-0.59) H 07/04/23 Eosinophils # (Auto) 0.39 K/uL (0.00-0.50) 07/04/23 Immature Granulocyte % (Auto) 0.6 % 07/04/23 Neutrophils # (Auto) 12.40 K/uL (1.40-6.50) H 07/04/23 Lymphocytes # (Auto) 2.21 K/uL (1.20-3.40) 07/04/23 Monocytes # (Auto) 1.30 K/uL (0.11-0.59) H 07/04/23 Eosinophils # (Auto) 0.39 K/uL (0.00-0.50) 07/04/23 Basophils # (Auto) 0.09 K/uL (0.00-0.20) 07/04/23 Immature Granulocyte # (Auto) 0.10 K/uL (0.01-0.20) 4 Na 134 mmol/L (136-145) L 07/04/23 K 3.9 mmol/L (3.5-5.1) 07/04/23 Cl 98 mmol/L (98-107) 07/04/23 CO2 28 mmol/L (21-32) 07/04/23 Anion Gap 8 (3-11) 07/04/23 BUN 7 mg/dl (6-23) 07/04/23 Creatinine 0.85 mg/dl (0.6-1.4) 07/04/23 Estimated GFR ( Amer) 135.5 ml/min 07/04/23 Estimated GFR (Non-Af Amer) 116.9 ml/min 07/04/23 BUN/Creatinine Ratio 8.2 (10-20) L 07/04/23 Glu 109 mg/dl (70-99(Fasting)) H 07/04/23 Ca 9.4 mg/dl (8.6-10.3) 07/04/23 Phosphorus Level 2.4 mg/dl (2.5-4.9) L 07/04/23 Total Bilirubin 1.7 mg/dl (0.2-1.0) H 07/04/23 AST 49 U/L (13-39) H 07/04/23 ALT 49 U/L (7-52) 07/04/23 Alkaline Phosphatase 141 U/L (34-104) H 07/04/23 TP 7.9 gm/dl (6.0-8.3) 07/04/23 Albumin 4.2 gm/dl (3.4-5.0) 07/04/23 Globulin 3.7 gm/dl (2.5-4.0) 07/04/23 Albumin/Globulin Ratio 1.1 (0.9-2) 07/04/23 Lactate Dehydrogenase 244 U/L (86-244) 07/04/23 Calcium Level 9.4 mg/dl (8.6-10.3) 07/04/23 20:29 Prothromb Time International Ratio 1.1 (0.9-1.1) 07/04/23 20:2 9 Venous Blood pH 7.41 (7.36-7.41) 07/04/23 23:59 Venous Blood Partial Pressure CO2 26 mmHg (38-50) L 07/04/23 23 :59 Venous Blood Partial Pressure O2 44 mmHg 07/04/23 23:59 Venous Blood HCO3 17 mmol/L 07/04/23 23:59 Venous Blood Base Excess -6.5 mEq/L 07/04/23 23:59 Venous Blood Oxygen Saturation 75.1 % 07/04/23 23:59 Microbiology 07/05/23 10:40 Gram Stain - Final Sputum, Expectorated Diagnostic Findings (Past 24 Hours) Chest X-Ray 07/04/23 19:24 XR chest 1V not portable HISTORY: Chest pain, nonspecific COMPARISON: None. FINDINGS: Mild reticulonodular interstitial thickening at the lung bases. The heart is normal in size. No pleural effusions. No pneumothorax. No acute fractures. IMPRESSION: Mild reticulonodular interstitial thickening at the lung bases. This favors an atypical/viral pneumonitis. ACT 112: Negative or not required by law. Electronically signed by: Riaz Berry M.D. 07/05/2023 6:57 AM Chest CTA 07/04/23 22:04 CR Exam(s): CTA CHEST IV Amt: 120 cc otp i320 EXAM: CT Angiography Chest With Intravenous Contrast CLINICAL HISTORY: Reason for exam: SOB. TECHNIQUE: Axial computed tomographic angiography images of the chest with intravenous contrast. CTDI is 26.04 mGy and DLP is 899.64 mGy-cm. Automated exposure control was utilized for the study. A dose lowering technique was utilized adhering to the principles of ALARA. MIP reconstructed images were created and reviewed. COMPARISON: None. FINDINGS: Pulmonary arteries: Unremarkable. No pulmonary embolism. Aorta: No acute findings. No thoracic aortic aneurysm. Lungs: Diffuse asymmetric multilobar infiltrates with tree-in-bud pattern concerning for bronchiolar infectious process including viral etiology, nonspecific bronchiolitis, fungal infection or TB/atypical TB. Minimal bilateral lower lobe bronchiectasis. Pleural space: Unremarkable. No pleural effusion or pneumothorax. Heart: Unremarkable. No cardiomegaly. No significant pericardial effusion. No evidence of RV dysfunction. Bones/joints: No acute fracture. No dislocation. Soft tissues: Unremarkable. Lymph nodes: Unremarkable. No enlarged lymph nodes. Other findings: Visualized upper abdominal structures are unremarkable. IMPRESSION: 1. No pulmonary embolus or aortic dissection. 2. Diffuse micronodular infiltrates as described above with wide differential diagnosis including bronchiolitis of viral etiology, inflammatory, fungal infection or TB/atypical TB. Clinical correlation recommended. 3. No pleural effusion or pneumothorax. Communications: Call Doctor Other Electronically signed by: Angelika Haque MD 07/05/23 00:11 AM RT Ventilator Mngmt (Last Documented) Ventilator Ordered Settings Respiratory Rate 16 07/05/23 07:14 Ventilator - PT Measurements Respiratory Rate 16 PG Care Time/CCT Total # of Minutes Spent Total Time Spent with Patient: Total time spent is greater than 50% in coordination of care (as documented) at patient's floor/unit and/or counseling patient: Coding Level of Care Code 31199 IN/OBS CONSULT LVL 4,60M Diagnoses Abnormal chest CT R93.89 Shortness of breath R06.02 Bronchiolitis J21.9
[2023-07-05] MEDS: AZITHROMYCIN 250 MG TAB PO ONE (15:10)
--- NOTE | 2023-07-05 17:28 | Discharge Summary ---
Date of Service July 05, 2023 Admission HPI Per Admitting Provider Gavin Walsh is a 32yo male with history of paranoid schizophrenia, prior opiate abuse on Suboxone therapy presenting with shortness of breath. Patient reports two weeks of stable, persistent shortness of breath. He feels short of breath at rest, worsened with exertion. His reports that patient was doubled over gasping for air after taking out the trash. He has been taking Albuterol nebulizer treatments with some short term relief. Patient reports cough productive for green phlegm. He has some chest/rib discomfort when he coughs and pleuritic pain as well. Denies headache, congestion, sore throat, fevers, chills or sweats. Denies chest pain, palpitations, abdominal pain, nausea, vomiting, diarrhea or constipation. Patient with remote history of IVDU 8-9 years ago. He is currently on Suboxone therapy 8mg SL BID. He used methamphetamines in the past as well - last used 5 years ago. Has never been tested for HIV. He does vape although infrequently, smokes marijuana/medical grade from the dispensary Incarcerated for a brief time - in December 2018 for 14 days. No history of homelessness or close contacts with Tuberculosis. He reports having a negative PPD test in 2019 Recently drove to [place] to visit his mother. No exposure to birds, bats, mold, caving, etc. Admission Exam Per Admitting Provider General: patient resting comfortably, NAD, non-toxic in appearance, AA&O x 4 Skin: warm, dry, intact, no rashes or lesions HEENT: NC/AT, PERRL, EOMI, anicteric sclera, conjunctiva without injection, external ear normal to inspection and nontender, nares patent, moist mucus membranes, dentition intact, no oropharyngeal lesions, neck supple, trachea midline, no LAD, no thyromegaly, no JVD Heart: +S1/S2, regular, no m/r/g Lungs: equal air entry bilaterally, diffuse wheezing throughout, coarse breath sounds in bilateral bases Abd: +BS, soft, NT/ND, no masses/organomegaly/ascites Ext: warm, 2+ pulses in UE/LE bilaterally, no clubbing/cyanosis or edema Neuro: nonfocal, patient AA&O x 4, speech intact, no facial droop, moving all extremities on command with equal strength 5/5 Principal Diagnosis Bronchitis Discharge Exam Constitutional WD/WN, vitals as above Respiratory normal respiratory effort, lungs clear to auscultation Cardiovascular RRR, no murmur, no edema Gastrointestinal (Abdomen) normal bowel sounds, soft, nontender, no hepatosplenomegaly Skin no rashes, warm and dry Neurologic moves all extremities and awake Discharge Data Allergies Allergy/AdvReac Type Severity Reaction Status Date / Time Penicillins Allergy Severe throat Verified 07/04/23 22:55 swells Consultations 07/05/23 00:49 ED Decision to Admit Stat 07/05/23 08:56 Consult Pulmonology Routine Ordered Studies 07/04/23 22:04 CT angio chest PE protocol Stat Hospital Course (1) Acute hypoxic respiratory failure: (2) Abnormal chest CT: (3) History of paranoid schizophrenia: Plan 32yo male with history of paranoid schizophrenia, bipolar disorder, and childhood asthma presenting with two weeks of dyspnea, worse with exertion. Also notes pleuritic chest pain and productive cough with green sputum, no hemoptysis. Hx of vaping (multiple years), marijuana use (19 years), IVDU, prior opiate use. Acute hypoxic respiratory failure/ Bronchiolitis -CT of the chest showing diffuse micronodular infiltrates. -Sputum gram stain shows: many gram positive cocci. -Elevated WBC (16.49), neutrophils (12.20), negative procalcitonin, negative biofire panel, normal BNP - 7-day course of azithromycin for suspected bronchitis -Blood and sputum culture pending -HIV test pending -Pulmonology consulted: No indication for bronchoscopy or additional invasive procedures at this time. Recommend a follow-up noncontrast CT of the chest in 8 to 10 weeks to document resolution. - two- steps evaluation:Patient with need of 2L/min for ambulation and rest -He was encouraged to avoid vaping or smoking marijuana. Abnormal chest CT: as above History of paranoid schizophrenia: Chronic. Stable Total Time Total Time Spent Total Time Spent (In Minutes): <30 Discharge Plan Discharge Items Patient Disposition: Home - Self-Care Reason For Visit: ACUTE HYPOXIC RESPIRATORY FAILURE Discharge Diagnosis: Bronchiolitis Activity: Resume your previous activity Non-emergency contact: Primary Care Provider Call non-emergency contact if: you have any medication questions and your temperature is above 101 Follow-up/Referrals: Zeenat Gonzalez PA-C [Primary Care Provider] - (Clinic will reach out soon) Diet: Regular Addtl Attending Provider Instructions: You were admitted due to shortness of breath and increase requirement of oxygen. CT showed sign of infectious/inflammatory bronchiolitis. - You will be sent home with Azithromycin. You will continue this for 7 days in total. - Continue using the oxygen supplementation - Recommend a follow-up noncontrast CT of the chest in 8 to 10 weeks Pending Studies at Discharge: No Stand-Alone Forms: My [facility], Smoking Cessation Medications and DC Order Prescriptions: New azithromycin 250 mg Tablet 250 mg PO QAM 7 Days Qty: 7 0RF Continued haloperidol 5 mg tablet 5 mg PO HS diphenhydramine HCl [Banophen] 25 mg tablet 50 mg PO HS benztropine 1 mg tablet 1 mg PO DAILY mirtazapine 15 mg tablet 15 mg PO HS albuterol sulfate 90 mcg/actuation HFA aerosol inhaler 2 puff INHALATION .Q4-6H PRN (Reason: Shortness Of Breath Or Wheezing) propranolol 20 mg tablet 20 mg PO BID buprenorphine-naloxone 8-2 mg tablet, sublingual 1 tab SUBLINGUAL BID Discharge Orders: Discharge Order (Routine); Ordered 07/05/23 Ordered By: Delbert Garcia/Other Patient Handouts: Acute Bronchitis, Infec Common Resp Prevention Admission Data Admit Date/Time: 07/05/23 01:22 Attending Provider: Ru Negrete Admit Provider: Rose Cuellar Primary Care Provider: Zeenat Gonzalez Other Providers: Rose Cuellar; Ruben Hayes Other Interventions: Discharge Summary Assessment (RN) Last Done: 07/05/23 16:28 Supervising Physician Co-Signing Physician Notes I personally examined the patient and verified all chou points of history and exam, discussed case, and agree with decision making with Dr Milton Tejada Feeling better and would like to go home. Still requiring oxygenfortunately this was able to be set up for home. Pulmonary input greatly appreciated. Vitals noted, in general he is awake and alert pleasant no distress. HEENT normocephalic atraumatic mucous membranes moist. Breathing unlabored no accessory muscle use good effort. Skin shows no rashes no pallor or icterus. Neuro without focal deficits. Hypoxia/bronchiolitis type picture on CTappreciate pulmonary inputwill treat with azithromycin, could possibly be marijuana/vape induced, at any rateoxygen set up stable for home, made it clear to patient and family that this is a "work in progress" and that he is stable to go home on azithromycin and oxygen, but will definitely require ongoing follow-up with PCP, pulmonary, and repeat chest CT. Otherwise as above. Resident Activity Tracking Resident Involvement: Resident Care Provided Care Provided: Adult Hospital Medicine
--- NOTE | 2023-07-05 20:02 | Billing Data ---
Date of Service July 05, 2023 Coding Level of Care Code 08159 IN/OBS DISCH 30 MIN/LESS
[2023-07-05] MEDS ORDERED: MIRTAZAPINE TAB 15 MG TAB PO SCH (21:00)
[2023-07-05] MEDS ORDERED: diphenhydrAMINE Capsule 25 MG CAP PO SCH (21:00)
[2023-07-05] MEDS ORDERED: BENZTROPINE MESYLATE 1 MG TAB PO SCH (21:00)
[2023-07-05] MEDS ORDERED: haloperidoL 5 MG TAB PO SCH (21:00)
--- NOTE | 2023-07-06 04:07 | Electrocardiogram Report ---
Test Reason : Blood Pressure : / mmHG Vent. Rate : 090 BPM Atrial Rate : 090 BPM P-R Int : 120 ms QRS Dur : 084 ms QT Int : 354 ms P-R-T Axes : 000 056 006 degrees QTc Int : 433 ms Normal sinus rhythm with sinus arrhythmia Nonspecific ST and T wave abnormality Abnormal ECG No previous ECGs available Confirmed by Jagdish Villalta ([id number]) on 07/06/2023 4:06:54 AM Referred By: REFERRED SELF Confirmed By:Jagdish Villalta
[2023-07-06] MEDS ORDERED: AZITHROMYCIN 250 MG TAB PO SCH (09:00)
== END 2023-07-05 17:02 | disposition home or self-care (01) | DRG 189 ==
LOC: ED 19:17 → 3N 07-05 01:22 → SUATTDRO 07-05 01:22 → 3N 07-05 02:04